=== PATIENT | male | born 1960 | race Caucasian/White ===

== ENCOUNTER 2019-09-24 02:05 | Emergency (ER) | payer SELFPAY ==
[~2019-09-24] VITALS: Ht 172 cm; Wt 68.0 kg
[2019-09-24] MEDS ORDERED: KETOROLAC 30 MG/ML VIAL IM STA (02:23)
--- NOTE | 2019-09-24 02:31 | ED Fall/Injury ---
General Chief Complaint: Back Problems Stated Complaint: RIB PAIN Source: patient Exam Limitations: no limitations History of Present Illness Date Seen by Provider: Sep 24, 2019 Time Seen by Provider: 02:20 Initial Comments 59 yo male presents with right side rib pain. he reports he fell into his truck about 5 days ago. complains of pain into his right ribs. thinks he might have broken them. pt states pain getting worse, he has not taken anything for the pain. Allergies and Home Medications Allergies Coded Allergies: Penicillins (Verified Allergy, Unknown, 09/24/19) morphine (Verified Allergy, Unknown, 09/24/19) Patient Home Medication List Home Medication List Reviewed: Yes Review of Systems Review of Systems Constitutional: No chills, No fever Respiratory: No short of breath Cardiovascular: No chest pain, No palpitations Gastrointestinal: no symptoms reported; No abdominal pain Musculoskeletal: see HPI Skin: no symptoms reported Past Elqrode-Ntawpo-Yqhivw Hx Past Med/Social Hx: Reviewed Nursing Past Med/Soc Hx Patient Social History Alcohol Use: Denies Use Recreational Drug Use: No Smoking Status: Current Everyday Smoker Type Used: Cigarettes 2nd Hand Smoke Exposure: Yes Recent Foreign Travel: No Contact w/Someone Who Travel: No Recent Hopitalizations: No Physical Abuse: No Sexual Abuse: No Mistreated: No Past Medical History Surgeries: Yes Respiratory: No Cardiac: Yes Hypertension Neurological: Yes Stroke Genitourinary: No Gastrointestinal: No Musculoskeletal: No Endocrine: No HEENT: No Cancer: No Psychosocial: No Integumentary: No Blood Disorders: No Physical Exam Vital Signs Vital Signs - First Documented 09/24/19 02:13 Temp 36.4 Pulse 72 Resp 16 B/P (MAP) 184/80 (114) Pulse Ox 98 O2 Delivery Room Air Capillary Refill : Height, Weight, BMI Height: '" Weight: lbs. oz. kg; BMI Method: General Appearance: mild distress Neck: supple Cardiovascular: normal peripheral pulses, regular rate, rhythm Respiratory: lungs clear, normal breath sounds Back: other (tenderness to right posterior ribs. ) Extremities: normal range of motion, non-tender Neurologic/Psychiatric: no motor/sensory deficits, alert, oriented x 3 Skin: normal color, warm/dry Progress/Results/Core Measures Results/Orders My Orders Orders - MARJAN GUILLEN DO Ketorolac Injection (Toradol Injection) (09/24/19 02:23) Ribs/Unilateral With Chest (09/24/19 02:23) Vital Signs/I&O 09/24/19 02:13 Temp 36.4 Pulse 72 Resp 16 B/P (MAP) 184/80 (114) Pulse Ox 98 O2 Delivery Room Air Diagnostic Imaging Diagonstic Imaging: Xray Plain Films/CT/US/NM/MRI: other (right ribs) Comments no fracture noted. Departure Impression Primary Impression: Contusion of rib on right side Qualified Codes: S20.211A - Contusion of right front wall of thorax, initial encounter Disposition: HOME, SELF-CARE Condition: Stable Departure-Patient Inst. Referrals: PIOTR GAMEZ MD (PCP/Family) Primary Care Physician Patient Instructions: Contusion (DC), Bruised Rib (DC) Add. Discharge Instructions: Warm moist heat to affected area 4% topical lidocaine with menthol to affected area as directed on package Tylenol or ibuprofen as needed for pain All discharge instructions reviewed with patient and/or family. Voiced understanding. MARJAN GUILLEN DO Sep 24, 2019 02:31 POS
[2019-09-24 02:55] VITALS: BP 184/80
--- NOTE | 2019-09-24 07:32 | Diagnostic Imaging Report ---
EXAM: RIBS/UNILATERAL WITH CHEST INDICATION: Trauma. Right chest wall pain. COMPARISON: None. FINDINGS: Normal heart size and central pulmonary vascularity. Cardiac pacer. No focal pulmonary opacity, pleural effusion, or pneumothorax. No right rib fractures identified. IMPRESSION: No acute cardiopulmonary findings. No right rib fractures identified. Dictated by: Dictated on workstation # [id number]
== END 2019-09-24 02:56 | disposition home or self-care (01) ==
LOC: ER FS 02:11
DX: S20.211A Contusion of right front wall of thorax, initial encounter (principal); I10 Essential (primary) hypertension; F17.210 Nicotine dependence, cigarettes, uncomplicated; Z86.73 Personal history of transient ischemic attack (TIA), and cerebral infarction without residual deficits; Z88.0 Allergy status to penicillin; Z88.5 Allergy status to narcotic agent; W19.XXXA Unspecified fall, initial encounter; Y92.812 Truck as the place of occurrence of the external cause
CPT/HCPCS: 71101; 96372

== ENCOUNTER 2020-03-22 12:48 | Inpatient (IN) | payer SELFPAY ==
[~2020-03-22] VITALS: Ht 172.7 cm; Wt 77.0 kg
[2020-03-22] VITALS (11 sets, daily range): BP systolic 145–173; BP diastolic 80–108
--- NOTE | 2020-03-22 12:56 | ED General ---
General Stated Complaint: LIGHT-HEADED; LETHARGY; HEAT EXPOSURE History of Present Illness Date Seen by Provider: March 22, 2020 Time Seen by Provider: 12:56 Initial Comments Patient presenting to emergency department for evaluation of multiple complaints including occult ambulating with falls as well as left ear ringing and left sided headache with right arm weakness. All the symptoms except her right arm weakness started yesterday in the right arm weakness has been going on for approximately one month. He says that he had been off his blood pressure medications were restarted them recently. He denies any trauma or pain. No cough fevers chills nausea vomiting or shortness of breath. He does have a history of hypertension high cholesterol as well as smoking cigarettes. He is in no obvious distress with normal vital signs other than hypertension noted. Allergies and Home Medications Allergies Coded Allergies: Penicillins (Verified Allergy, Unknown, 09/24/19) morphine (Verified Allergy, Unknown, 09/24/19) Patient Home Medication List Home Medication List Reviewed: Yes Review of Systems Review of Systems Constitutional: dizziness EENTM: other (ringing in the ear) Respiratory: no symptoms reported Cardiovascular: no symptoms reported Gastrointestinal: no symptoms reported Genitourinary: no symptoms reported Musculoskeletal: no symptoms reported Skin: no symptoms reported Psychiatric/Neurological: Headache, Weakness All Other Systems Reviewed Negative Unless Noted: Yes Past Pkbubag-Wkmofv-Ywlqhb Hx Patient Social History Type Used: Cigarettes 2nd Hand Smoke Exposure: Yes Recent Foreign Travel: No Contact w/Someone Who Travel: No Recent Hopitalizations: No Past Medical History Surgeries: Yes Respiratory: No Cardiac: Yes Hypertension Neurological: Yes Stroke Genitourinary: No Gastrointestinal: No Musculoskeletal: No Endocrine: No HEENT: No Cancer: No Psychosocial: No Integumentary: No Blood Disorders: No Physical Exam Vital Signs Capillary Refill : Height, Weight, BMI Height: '" Weight: lbs. oz. kg; 22.00 BMI Method: General Appearance: No Apparent Distress, WD/WN HEENT: PERRL/EOMI Neck: Supple Respiratory: Lungs Clear, No Respiratory Distress Cardiovascular: Regular Rate, Rhythm Gastrointestinal: Non Tender, Soft Back: Normal Inspection Extremity: Normal Capillary Refill, No Pedal Edema Neurologic/Psychiatric: Alert, Oriented x3, correctional medicine physician II-XII Norm as Tested, Motor Weakness (R arm drift) Skin: Warm/Dry Progress/Results/Core Measures Suspected Sepsis SIRS Temperature: Pulse: Respiratory Rate: Laboratory Tests 03/22/20 13:12: White Blood Count 12.2H Blood Pressure / Mean: Laboratory Tests 03/22/20 13:12: Creatinine 1.12, INR Comment 0.9, Platelet Count 291, Total Bilirubin 0.6 Results/Orders Lab Results Laboratory Tests Test 03/22/20 13:12 03/22/20 13:16 Range/Units White Blood Count 12.2 H 4.3-11.0 10^3/uL Red Blood Count 5.23 4.35-5.85 10^6/uL Hemoglobin 15.0 13.3-17.7 G/DL Hematocrit 44 40-54 % Mean Corpuscular Volume 84 80-99 FL Mean Corpuscular Hemoglobin 29 25-34 PG Mean Corpuscular Hemoglobin Concent 34 32-36 G/DL Red Cell Distribution Width 14.9 H 10.0-14.5 % Platelet Count 291 130-400 10^3/uL Mean Platelet Volume 10.4 7.4-10.4 FL Neutrophils (%) (Auto) 63 42-75 % Lymphocytes (%) (Auto) 24 12-44 % Monocytes (%) (Auto) 10 0-12 % Eosinophils (%) (Auto) 2 0-10 % Basophils (%) (Auto) 1 0-10 % Neutrophils # (Auto) 7.8 1.8-7.8 X 10^3 Lymphocytes # (Auto) 3.0 1.0-4.0 X 10^3 Monocytes # (Auto) 1.2 H 0.0-1.0 X 10^3 Eosinophils # (Auto) 0.2 0.0-0.3 10^3/uL Basophils # (Auto) 0.1 0.0-0.1 10^3/uL Prothrombin Time 12.5 12.2-14.7 SEC INR Comment 0.9 0.8-1.4 Activated Partial Thromboplast Time 28 24-35 SEC Sodium Level 142 135-145 MMOL/L Potassium Level 4.1 3.6-5.0 MMOL/L Chloride Level 104 98-107 MMOL/L Carbon Dioxide Level 26 21-32 MMOL/L Anion Gap 12 5-14 MMOL/L Blood Urea Nitrogen 28 H 7-18 MG/DL Creatinine 1.12 0.60-1.30 MG/DL Estimat Glomerular Filtration Rate > 60 BUN/Creatinine Ratio 25 Glucose Level 113 H 70-105 MG/DL Calcium Level 9.7 8.5-10.1 MG/DL Corrected Calcium 9.5 8.5-10.1 MG/DL Total Bilirubin 0.6 0.1-1.0 MG/DL Aspartate Amino Transf (AST/SGOT) 17 5-34 U/L Alanine Aminotransferase (ALT/SGPT) 17 0-55 U/L Alkaline Phosphatase 66 40-136 U/L Troponin I < 0.30 <0.30 NG/ML Total Protein 6.6 6.4-8.2 GM/DL Albumin 4.3 3.2-4.5 GM/DL Serum Alcohol < 10 <10 MG/DL Urine Color DARK YELLOW Urine Clarity CLEAR Urine pH 6.0 5-9 Urine Specific [place] 1.025 H 1.016-1.022 Urine Protein NEGATIVE NEGATIVE Urine Glucose (UA) NEGATIVE NEGATIVE Urine Ketones NEGATIVE NEGATIVE Urine Nitrite NEGATIVE NEGATIVE Urine Bilirubin NEGATIVE NEGATIVE Urine Urobilinogen 0.2 < = 1.0 MG/DL Urine Leukocyte Esterase NEGATIVE NEGATIVE Urine RBC (Auto) NEGATIVE NEGATIVE Urine RBC RARE /HPF Urine WBC RARE /HPF Urine Squamous Epithelial Cells RARE /HPF Urine Crystals NONE /LPF Urine Bacteria NEGATIVE /HPF Urine Casts NONE /LPF Urine Mucus SMALL H /LPF Urine Culture Indicated NO Urine Opiates Screen NEGATIVE NEGATIVE Urine Oxycodone Screen NEGATIVE NEGATIVE Urine Methadone Screen NEGATIVE NEGATIVE Urine Propoxyphene Screen NEGATIVE NEGATIVE Urine Barbiturates Screen POSITIVE H NEGATIVE Ur Tricyclic Antidepressants Screen NEGATIVE NEGATIVE Urine Phencyclidine Screen NEGATIVE NEGATIVE Urine Amphetamines Screen NEGATIVE NEGATIVE Urine Methamphetamines Screen NEGATIVE NEGATIVE Urine Benzodiazepines Screen NEGATIVE NEGATIVE Urine Cocaine Screen NEGATIVE NEGATIVE Urine Cannabinoids Screen NEGATIVE NEGATIVE My Orders Orders - ELIE PETERSON DO Iv/Invasive Line Insertion .IV start (03/22/20 13:02) Alcohol (03/22/20 13:02) Cbc With Automated Diff (03/22/20 13:02) Comprehensive Metabolic Panel (03/22/20 13:02) Drug Screen Stat (Urine) (03/22/20 13:02) Partial Thromboplastin Time (03/22/20 13:02) Protime With Inr (03/22/20 13:02) Troponin I Fs (03/22/20 13:02) Ua Culture If Indicated (03/22/20 13:02) Chest 1 View Ap/Pa Only (03/22/20 13:02) Ekg Tracing (03/22/20 13:02) Ct Head/Cervical Spine Wo (03/22/20 13:02) Hydralazine Injection (Apresoline Inject (03/22/20 14:30) Amlodipine Tablet (Norvasc Tablet) (03/22/20 14:30) Aspirin Chewable Tablet (Baby Aspirin Ch (03/22/20 14:30) Vital Signs/I&O Capillary Refill : Progress Note : Progress Note Patient has a constellation of nonspecific neurologic symptoms and certainly has blood pressure could be contributory. He was given Norvasc and hydralazine here which improved his blood pressure. Given his abnormal head CT reading of possible pres syndrome I told him that he warrants admission for further observation and treatment and to see if we can get his neurologic symptoms improved. Patient is agreeable with admission as I spoke to Dr. Samuels at [facility] and he agreed to accept patient. Patient transferred in stable condition. Departure Impression Primary Impression: Right arm weakness Additional Impressions: Malignant hypertension Dizziness Disposition: ADMITTED INPATIENT Condition: Stable Transfer Transfer Reason: Exceeds level of care Transfer Facility: [facility] Method of Transfer: EMS Departure-Patient Inst. Referrals: PIOTR GAMEZ MD (PCP/Family) Primary Care Physician ELIE PETERSON DO March 22, 2020 12:56
--- OUTSIDE RECORDS SUMMARY | 2020-03-22 12:56 | XMS REPORT | Continuity of Care Document ---
Author Organization Unknown Address Unknown Phone Unavailable Allergies Active Description Code Type Severity Reaction Onset Reported/Identified Relationship to Patient Clinical Status Yes morphine [id number] Drug Allergy Unknown N/A 09/24/2019 Yes Penicillins [id number] Drug Aller gy Unknown N/A 09/24/2019 Medications There is no data. Problems Date Dx Coded Attending Type Code Diagnosis Diagnosed By 09/27/2019 DONNA GUILLEN DOVOR L Ot F17.2 10 NICOTINE DEPENDENCE, CIGARETTES, UNCOMPL 09/27/2019 WILMER DO, MARJAN L Ot I10 ESSENTIAL (PRIMARY) HYPERTENSION 09/27/2019 WILMER GARZA, MARJAN L Ot R07.8 1 PLEURODYNIA 09/27/2019 WILMER GARZA, MARJAN L Ot S20.211A CONTUSION OF RIGHT FRONT WALL OF THORAX, 09/27/2019 GUILLEN DO, MARJAN L Ot W19.XXXA UNSPECIFIED FALL, INITIAL ENCOUNTER 09/27/2019 DONNA GUILLEN DOVOR L Ot Y92.[address] OF OCCURRENCE OF THE 09/27/2019 GUILLEN DO, MARJAN L Ot Z86.7 3 PRSNL HX OF TIA (TIA), AND CEREB INFRC W 09/27/2019 WILMER GARZA, MARJAN L Ot Z88.0 ALLERGY STATUS TO PENICILLIN 09/27/2019 WILMER GARZA, MARJAN L Ot Z88.5 ALLERGY STATUS TO NARCOTIC AGENT STATUS Procedures There is no data. Results There is no data. Encounters ACCT No. Visit Date/Time Discharge Status Pt. Type Provider Facility Loc./Unit Complaint [id number] 09/24/2019 02:11:00 019 02:56:00 DIS Outpatient MACY GUILLEN DOR L [facility] ER FS RIB PAIN
[2020-03-22 13:42] LABS: BILIRUBIN,URINE NEGATIVE (NEGATIVE); CLARITY,URINE CLEAR; COLOR,URINE DARK YELLOW; GLUCOSE, URINE (UA) NEGATIVE (NEGATIVE); KETONES,URINE NEGATIVE (NEGATIVE); LEUKOCYTE ESTERASE ,URINE NEGATIVE (NEGATIVE); NITRITE,URINE NEGATIVE (NEGATIVE); PROTEIN,URINE NEGATIVE (NEGATIVE)
[2020-03-22 13:47] LABS: BACTERIA,URINE NEGATIVE /HPF; RBC,URINE RARE /HPF; SQUAMOUS EPITHELIAL CELL,UR RARE /HPF; WBC,URINE RARE /HPF
[2020-03-22 13:48] LABS: BASOPHILS # (AUTO) 0.1 10^3/uL (0.0-0.1); BASOPHILS % (AUTO) 1 % (0-10); EOSINOPHILS # (AUTO) 0.2 10^3/uL (0.0-0.3); EOSINOPHILS % (AUTO) 2 % (0-10); HEMATOCRIT 44 % (40-54); LYMPHOCYTES % (AUTO) 24 % (12-44); MEAN CORPUSCULAR HEMOGLOBIN 29 PG (25-34); MEAN CORPUSCULAR HGB CONC 34 G/DL (32-36); MEAN CORPUSCULAR VOLUME 84 FL (80-99); MEAN PLATELET VOLUME 10.4 FL (7.4-10.4); MONOCYTES # (AUTO) 1.2 X 10^3 (0.0-1.0); MONOCYTES % (AUTO) 10 % (0-12); NEUTROPHILS # (AUTO) 7.8 X 10^3 (1.8-7.8); NEUTROPHILS % (AUTO) 63 % (42-75); PLATELET COUNT 291 10^3/uL (130-400); RED CELL DISTRIBUTION WIDTH 14.9 % (10.0-14.5); WHITE BLOOD COUNT 12.2 10^3/uL (4.3-11.0)
[2020-03-22 13:49] LABS: CARBON DIOXIDE 26 MMOL/L (21-32); CHLORIDE 104 MMOL/L (98-107); INR 0.9 (0.8-1.4); POTASSIUM 4.1 MMOL/L (3.6-5.0); PROTHROMBIN TIME PATIENT 12.5 SEC (12.2-14.7); SODIUM 142 MMOL/L (135-145)
[2020-03-22 13:50] LABS: ALANINE AMINOTRANSFERASE 17 U/L (0-55); ALBUMIN 4.3 GM/DL (3.2-4.5); ALKALINE PHOSPHATASE 66 U/L (40-136); BILIRUBIN,TOTAL 0.6 MG/DL (0.1-1.0); BUN/CREATININE RATIO 25; CALCIUM 9.7 MG/DL (8.5-10.1); CREATININE SERUM 1.12 MG/DL (0.60-1.30); GFR ESTIMATED > 60; GLUCOSE 113 MG/DL (70-105); TOTAL PROTEIN 6.6 GM/DL (6.4-8.2)
[2020-03-22 13:51] LABS: AMPHETAMINE SCREEN, URINE NEGATIVE (NEGATIVE); BARBITURATE SCREEN URINE POSITIVE (NEGATIVE); BENZODIAZEPINES SCREEN URINE NEGATIVE (NEGATIVE); CANNABINOID SCREEN, URINE NEGATIVE (NEGATIVE); COCAINE SCREEN URINE NEGATIVE (NEGATIVE); METHADONE STAT NEGATIVE (NEGATIVE); METHAMPHETAMINE SCREEN URINE S NEGATIVE (NEGATIVE); OPIATE SCREEN URINE NEGATIVE (NEGATIVE); OXYCODONE STAT NEGATIVE (NEGATIVE); PROPOXYPHENE STAT NEGATIVE (NEGATIVE); TRICYCLIC ANTIDEPRESSANTS SCRE NEGATIVE (NEGATIVE)
--- NOTE | 2020-03-22 13:55 | Diagnostic Imaging Report ---
EXAM: CHEST 1 VIEW AP/PA ONLY INDICATION: Dizziness. Lightheaded. Ringing in ears. COMPARISON: 09/24/2019. FINDINGS: Normal heart size and central pulmonary vascularity. Minimal atelectasis or infiltrate in the medial right lung base. No pleural effusion or pneumothorax. Cardiac pacer. No acute osseous findings. IMPRESSION: Minimal atelectasis or infiltrate in the medial right lung base is new since the prior exam. Remainder stable. Dictated by: Dictated on workstation # [id number]
--- NOTE | 2020-03-22 14:01 | Diagnostic Imaging Report ---
PROCEDURE: CT head and CT cervical spine without contrast. TECHNIQUE: Multiple contiguous axial images were obtained through the brain and cervical spine without the use of intravenous contrast. Sagittal and coronal reformations through the cervical spine were then performed. Auto Exposure Controls were utilized during the CT exam to meet ALARA standards for radiation dose reduction. INDICATION: Dizziness. Lightheadedness. Ringing in the ears. COMPARISON: None. FINDINGS: CT head: No large acute territorial ischemia, mass, or hemorrhage. No midline shift or mass effect. Decreased attenuation is seen in the periventricular and subcortical white matter, most pronounced in the frontoparietal regions. The ventricles and cortical sulci are symmetric and unremarkable. The basilar cisterns are patent and unremarkable. The calvarium is intact. The visualized paranasal sinuses are clear. CT cervical spine: No acute fracture or dislocation is seen in the cervical spine. No focal osseous lesions. Vertebral body heights are well-maintained. The craniocervical junction is well-maintained. Mild degenerative changes are seen in the cervical spine with disc osteophyte complexes and uncovertebral arthropathy. Soft tissues of the neck are unremarkable. IMPRESSION: 1. No hemorrhage or focal intra-axial mass. No CT evidence of large acute territorial ischemia. 2. No acute fracture or dislocation in the cervical spine. 3. Nonspecific white matter changes, most pronounced in the frontoparietal regions. This may represent age-indeterminate ischemic changes. Other etiologies such as PRES may have this appearance. Recommend correlation with patient history and symptoms and, if indicated, MRI brain to further evaluate. Dictated by: Dictated on workstation # [id number]
[2020-03-22] MEDS ORDERED: hydrALAZINE (APESOLINE) 20 MG/ML VIAL IV ONE (14:30)
[2020-03-22] MEDS ORDERED: amLODIPine 5 MG (NORVASC) TAB PO ONE (14:30)
[2020-03-22] MEDS ORDERED: ASPIRIN 81 MG CHEW (CHILDREN'S ASA) PO ONE (14:30)
--- OUTSIDE RECORDS SUMMARY | 2020-03-22 14:53 | XMS REPORT | Continuity of Care Document ---
Author Organization Unknown Address Unknown Phone Unavailable Allergies Active Description Code Type Severity Reaction Onset Reported/Identified Relationship to Patient Clinical Status Yes morphine [id number] Drug Allergy Unknown N/A 09/24/2019 Yes Penicillins [id number] Drug Aller gy Unknown N/A 09/24/2019 Medications [...] Status Pt. Type Provider Facility Loc./Unit Complaint [id number] 09/24/2019 02:11:00 019 02:56:00 DIS Outpatient MACY GUILLEN DOR L [facility] ER FS RIB PAIN
--- NOTE | 2020-03-22 16:15 | NUR ---
JOSE ANTONIO MILNER admitted to room CU12-1, with an admitting diagnosis of malignant htn, on 03/22/20 from [facility] via [facility], accompanied by staff.JOSE ANTONIO MILNER introduced to surroundings, call light, bed controls, phone, TV, temperature control, lights, meal times, smoking policy, visitor policy, side rail policy, bathrooms and showers. Patient Rights given to patient in the handbook. JOSE ANTONIO MILNER verbalizes understanding that [facility] is not responsible for the loss or damage to any personal effects or valuables that are kept in the patients posession during their hospitalization. The following Patient Care Plans were discussed with the pt: Discharge Planning, knowledge deficit,fluid volume excess, and altered cerebral tissue perfusion. JOSE ANTONIO MILNER verbalizes understanding of Interdisciplinary Patient Education. Patient and family were informed about the Rapid Response Team and its purpose.
[2020-03-22] MEDS ORDERED: hydrALAZINE (APESOLINE) 20 MG/ML VIAL IV PRN (16:30)
[2020-03-22] MEDS: NICOTINE 21 MG (NICODERM) PATCH TD SCH (17:54)
[2020-03-22] MEDS: CARVEDILOL 6.25 MG (COREG) TAB PO SCH (21:05)
[2020-03-23] VITALS (12 sets, daily range): BP systolic 136–157; BP diastolic 80–96
[2020-03-23 03:44] LABS: BASOPHILS # (AUTO) 0.1 10^3/uL (0.0-0.1); BASOPHILS % (AUTO) 1 % (0-10); EOSINOPHILS # (AUTO) 0.3 10^3/uL (0.0-0.3); EOSINOPHILS % (AUTO) 3 % (0-10); HEMATOCRIT 43 % (40-54); HEMOGLOBIN 14.8 G/DL (13.3-17.7); LYMPHOCYTES # (AUTO) 3.1 X 10^3 (1.0-4.0); LYMPHOCYTES % (AUTO) 32 % (12-44); MEAN CORPUSCULAR HEMOGLOBIN 29 PG (25-34); MEAN CORPUSCULAR HGB CONC 35 G/DL (32-36); MEAN CORPUSCULAR VOLUME 83 FL (80-99); MEAN PLATELET VOLUME 10.5 FL (7.4-10.4); MONOCYTES # (AUTO) 1.2 X 10^3 (0.0-1.0); MONOCYTES % (AUTO) 12 % (0-12); NEUTROPHILS # (AUTO) 5.1 X 10^3 (1.8-7.8); NEUTROPHILS % (AUTO) 53 % (42-75); PLATELET COUNT 274 10^3/uL (130-400); RED CELL DISTRIBUTION WIDTH 15.6 % (10.0-14.5); WHITE BLOOD COUNT 9.8 10^3/uL (4.3-11.0)
[2020-03-23 04:14] LABS: CHLORIDE 106 MMOL/L (98-107); POTASSIUM 3.7 MMOL/L (3.6-5.0); SODIUM 139 MMOL/L (135-145)
[2020-03-23 04:16] LABS: CALCIUM 9.1 MG/DL (8.5-10.1)
[2020-03-23 04:17] LABS: GLUCOSE 90 MG/DL (70-105); TOTAL PROTEIN 6.8 GM/DL (6.4-8.2)
[2020-03-23 04:18] LABS: BILIRUBIN,TOTAL 0.6 MG/DL (0.1-1.0); CARBON DIOXIDE 21 MMOL/L (21-32)
[2020-03-23 04:20] LABS: ALKALINE PHOSPHATASE 60 U/L (40-136); CREATININE SERUM 1.03 MG/DL (0.60-1.30); GFR ESTIMATED > 60; PHOSPHORUS 3.9 MG/DL (2.3-4.7)
[2020-03-23 04:21] LABS: BUN/CREATININE RATIO 19
[2020-03-23 04:23] LABS: ALANINE AMINOTRANSFERASE 17 U/L (0-55)
[2020-03-23] MEDS ORDERED: POTASSIUM CL 10MEQ/50ML IVPB 50 ML IV SCH (06:00)
[2020-03-23] MEDS ORDERED: KCL 20 MEQ TAB (K-DUR) PO SCH (06:00)
[2020-03-23] MEDS ORDERED: MAGNESIUM 1 GM/100 ML IVPB 100 ML IV SCH (06:00)
[2020-03-23] MEDS: CARVEDILOL 6.25 MG (COREG) TAB PO SCH (08:18)
[2020-03-23] MEDS: NICOTINE 21 MG (NICODERM) PATCH TD SCH (08:19)
[2020-03-23] MEDS ORDERED: NICOTINE 21 MG (NICODERM) PATCH TD SCH (09:00)
[2020-03-23] MEDS ORDERED: LOSARTAN 100 MG (COZAAR) TABLET PO SCH (09:00)
--- NOTE | 2020-03-23 09:34 | History & Physical ---
HPI History of Present Illness: Monday afternoon started feeling weak and dizzy, thought due to heat and not enough fluid intake. Monday was going to mow yard and couldn't due to weakness. Just felt generalized weakness, couldn't stand up well. Feeling much better now, able to stand. He does admit he did not drink much on Monday, maybe 2 bottles of water and was outside all day. He had been off of his blood pressure medications for a while, but restarted about a week and a half before this occurred. He did also have bad headache when this occurred, which is better now. Denies chest pain, fever. He reports he has pacemaker for "weak heart" and has had multiple stents. He has not seen Cardiology for the last few scheduled times due to pandemic preventing the outreach clinic in [facility]. Source: patient Date seen by provider: March 23, 2020 Time Seen by Provider: 09:30 Attending Physician Sharron Lopez MD PCP Clarence Mota MD Consult Date of Admission March 22, 2020 at 14:49 Home Medications Home Medications Reviewed patient Home Medication Reconciliation performed by pharmacy medication reconciliations refractory technician and/or nursing. Patients Allergies have been reviewed. Allergies Coded Allergies: Penicillins (Verified Allergy, Unknown, 09/24/19) morphine (Verified Allergy, Unknown, 09/24/19) [id number] Hx Patient Social History Alcohol Use: Occasionally Uses Recreational Drug Use: No Smoking Status: Current Everyday Smoker Type Used: Cigarettes 2nd Hand Smoke Exposure: Yes Recent Foreign Travel: No Contact w/other who traveled: No Recent Hopitalizations: No Recent Infectious Disease Expo: No Past Medical History PMHx: HTN Pacemaker Coronary artery disease s/p stenting SurgHx: Pacemaker placement x 2 Cardiac stenting multiple times Family Medical History Significant Family History: Heart Disease Review of Systems ([facility]) Constitutional: No fever EENTM: No blurred vision Respiratory: cough (rare, relates to smoking); No short of breath Cardiovascular: No chest pain Gastrointestinal: No abdominal pain, No constipation, No diarrhea, No nausea, No vomiting Genitourinary: No dysuria Musculoskeletal: No joint pain Skin: rash (itchy in right inguinal region) Reviewed Test Results Reviewed Test Results Lab Laboratory Tests Test 03/22/20 13:12 03/22/20 13:16 03/23/20 03:31 Range/Units White Blood Count 12.2 H 9.8 4.3-11.0 10^3/uL Red Blood Count 5.23 5.14 4.35-5.85 10^6/uL Hemoglobin 15.0 14.8 13.3-17.7 G/DL Hematocrit 44 43 40-54 % Mean Corpuscular Volume 84 83 80-99 FL Mean Corpuscular Hemoglobin 29 29 25-34 PG Mean Corpuscular Hemoglobin Concent 34 35 32-36 G/DL Red Cell Distribution Width 14.9 H 15.6 H 10.0-14.5 % Platelet Count 291 274 130-400 10^3/uL Mean Platelet Volume 10.4 10.5 H 7.4-10.4 FL Neutrophils (%) (Auto) 63 53 42-75 % Lymphocytes (%) (Auto) 24 32 12-44 % Monocytes (%) (Auto) 10 12 0-12 % Eosinophils (%) (Auto) 2 3 0-10 % Basophils (%) (Auto) 1 1 0-10 % Neutrophils # (Auto) 7.8 5.1 1.8-7.8 X 10^3 Lymphocytes # (Auto) 3.0 3.1 1.0-4.0 X 10^3 Monocytes # (Auto) 1.2 H 1.2 H 0.0-1.0 X 10^3 Eosinophils # (Auto) 0.2 0.3 0.0-0.3 10^3/uL Basophils # (Auto) 0.1 0.1 0.0-0.1 10^3/uL Prothrombin Time 12.5 12.2-14.7 SEC INR Comment 0.9 0.8-1.4 Activated Partial Thromboplast Time 28 24-35 SEC Sodium Level 142 139 135-145 MMOL/L Potassium Level 4.1 3.7 3.6-5.0 MMOL/L Chloride Level 104 106 98-107 MMOL/L Carbon Dioxide Level 26 21 21-32 MMOL/L Anion Gap 12 12 5-14 MMOL/L Blood Urea Nitrogen 28 H 20 H 7-18 MG/DL Creatinine 1.12 1.03 0.60-1.30 MG/DL Estimat Glomerular Filtration Rate > 60 > 60 BUN/Creatinine Ratio 25 19 Glucose Level 113 H 90 70-105 MG/DL Calcium Level 9.7 9.1 8.5-10.1 MG/DL Corrected Calcium 9.5 9.1 8.5-10.1 MG/DL Total Bilirubin 0.6 0.6 0.1-1.0 MG/DL Aspartate Amino Transf (AST/SGOT) 17 20 5-34 U/L Alanine Aminotransferase (ALT/SGPT) 17 17 0-55 U/L Alkaline Phosphatase 66 60 40-136 U/L Troponin I < 0.30 <0.30 NG/ML Total Protein 6.6 6.8 6.4-8.2 GM/DL Albumin 4.3 4.0 3.2-4.5 GM/DL Serum Alcohol < 10 <10 MG/DL Urine Color DARK YELLOW Urine Clarity CLEAR Urine pH 6.0 5-9 Urine Specific [place] 1.025 H 1.016-1.022 Urine Protein NEGATIVE NEGATIVE Urine Glucose (UA) NEGATIVE NEGATIVE Urine Ketones NEGATIVE NEGATIVE Urine Nitrite NEGATIVE NEGATIVE Urine Bilirubin NEGATIVE NEGATIVE Urine Urobilinogen 0.2 < = 1.0 MG/DL Urine Leukocyte Esterase NEGATIVE NEGATIVE Urine RBC (Auto) NEGATIVE NEGATIVE Urine RBC RARE /HPF Urine WBC RARE /HPF Urine Squamous Epithelial Cells RARE /HPF Urine Crystals NONE /LPF Urine Bacteria NEGATIVE /HPF Urine Casts NONE /LPF Urine Mucus SMALL H /LPF Urine Culture Indicated NO Urine Opiates Screen NEGATIVE NEGATIVE Urine Oxycodone Screen NEGATIVE NEGATIVE Urine Methadone Screen NEGATIVE NEGATIVE Urine Propoxyphene Screen NEGATIVE NEGATIVE Urine Barbiturates Screen POSITIVE H NEGATIVE Ur Tricyclic Antidepressants Screen NEGATIVE NEGATIVE Urine Phencyclidine Screen NEGATIVE NEGATIVE Urine Amphetamines Screen NEGATIVE NEGATIVE Urine Methamphetamines Screen NEGATIVE NEGATIVE Urine Benzodiazepines Screen NEGATIVE NEGATIVE Urine Cocaine Screen NEGATIVE NEGATIVE Urine Cannabinoids Screen NEGATIVE NEGATIVE Phosphorus Level 3.9 2.3-4.7 MG/DL Magnesium Level 2.0 1.6-2.4 MG/DL Radiology Head CT 03/22: IMPRESSION: 1. No hemorrhage or focal intra-axial mass. No CT evidence of large acute territorial ischemia. 2. No acute fracture or dislocation in the cervical spine. 3. Nonspecific white matter changes, most pronounced in the frontoparietal regions. This may represent age-indeterminate ischemic changes. Other etiologies such as PRES may have this appearance. Recommend correlation with patient history and symptoms and, if indicated, MRI brain to further evaluate. Physical Exam-([facility]) Physical Exam Vital Signs VS - Last 72 Hours, by Label 5/24/03/22/20 03/22/20 03/22/20 13:03 15:35 16:15 16:15 Temp 36.5 36.5 36.7 Pulse 61 65 64 Resp 12 15 13 B/P (MAP) 190/97 (128) 151/78 (128) 147/89 (108) Pulse Ox 99 98 99 O2 Delivery Room Air Room Air Room Air Room Air 03/22/20 03/22/20 03/22/20 03/22/20 16:28 16:30 16:45 17:00 Pulse 68 61 61 63 Resp 16 17 19 B/P (MAP) 167/96 (119) 173/94 (120) 157/108 (124) Pulse Ox 99 99 99 O2 Delivery Room Air Room Air Room Air 03/22/20 03/22/20 03/22/20 03/22/20 17:15 18:00 19:00 19:00 Pulse 63 60 60 60 Resp 12 19 18 B/P (MAP) 161/102 (121) 154/81 (105) 145/86 (105) Pulse Ox 99 99 98 O2 Delivery Room Air Room Air Room Air 03/22/20 03/22/20 03/22/20 03/22/20 19:20 20:00 20:00 21:00 Temp 36.8 Pulse 67 60 Resp 21 15 B/P (MAP) 154/85 (108) 161/93 (115) Pulse Ox 99 98 98 O2 Delivery Room Air Room Air Room Air 03/22/20 03/22/20 03/23/20 03/23/20 22:00 23:00 00:00 00:00 Pulse 60 60 60 Resp 16 16 13 B/P (MAP) 157/84 (108) 150/80 (103) 146/81 (102) Pulse Ox 98 98 98 98 O2 Delivery Room Air Room Air Room Air Room Air 03/23/20 03/23/20 03/23/20 03/23/20 01:00 01:00 02:00 03:00 Pulse 60 60 60 61 Resp 9 23 B/P (MAP) 136/80 (98) 152/89 (110) 149/93 (111) Pulse Ox 98 97 98 O2 Delivery Room Air Room Air Room Air 03/23/20 03/23/20 03/23/20 03/23/20 04:00 04:00 04:00 05:00 Temp 36.3 Pulse 60 60 Resp 16 16 B/P (MAP) 140/88 (105) 140/87 (104) Pulse Ox 97 98 97 O2 Delivery Room Air Room Air Room Air 03/23/20 03/23/20 03/23/20 03/23/20 06:00 07:00 07:00 08:00 Pulse 60 60 60 60 Resp 17 10 26 B/P (MAP) 156/89 (111) 138/83 (101) Pulse Ox 98 98 98 O2 Delivery Room Air Room Air Room Air 03/23/20 03/23/20 03/23/20 03/23/20 08:00 08:27 09:00 10:00 Temp 36.5 Pulse 60 61 Resp 18 14 B/P (MAP) 151/86 (107) 151/91 (111) Pulse Ox 98 98 98 O2 Delivery Room Air Room Air Room Air 03/23/20 03/23/20 03/23/20 03/23/20 11:00 11:34 12:00 12:00 Temp 36.5 Pulse 60 61 Resp 15 14 B/P (MAP) 154/96 (115) 157/93 (114) Pulse Ox 98 98 99 O2 Delivery Room Air Room Air Room Air 03/23/20 12:33 Pulse 61 Capillary Refill : Less Than 3 SecondsLess Than 3 Seconds General Appearance: WD/WN, no apparent distress Eyes: Bilateral Eye PERRL, Bilateral Eye EOMI Respiratory: lungs clear, normal breath sounds Cardiovascular: regular rate, rhythm, systolic murmur (pt reports chronic) Gastrointestinal: normal bowel sounds, non tender, soft Extremities: no pedal edema Neurologic/Psychiatric: family practice md II-XII nml as tested, alert, normal mood/affect, oriented x 3; No abnormal cerebellar tests, No motor weakness Skin: rash (erythematous scaling plaque in right inguinal region) Assessment/Plan Assessment/Plan Admission Status: Observation (1) Malignant hypertension Status: Acute Assessment & Plan: Blood pressure improved with one dose of hydralazine and one dose of amlodipine in addition to his home medication. Will resume amlodipine 10 mg which he was on previously. MRI not available today, but neurologic exam normal. (2) Dizziness Status: Resolved (3) Right arm weakness Status: Resolved Clinical Quality Measures DVT/VTE Risk/Contraindication: Risk Factor Score Per Nursin RFS Level Per Nursing on Admit: 2=Moderate SHARRON LOPEZ MD March 23, 2020 09:34
[2020-03-23] MEDS ORDERED: CARV6.252 PO (09:40)
[2020-03-23] MEDS ORDERED: LOSA100T57 PO (09:40)
[2020-03-23] MEDS ORDERED: ATOR40TA70 PO (09:40)
[2020-03-23] MEDS ORDERED: ASPIRIN 325 MG (5 GR) TABLET PO SCH (10:00)
[2020-03-23] MEDS ORDERED: amLODIPine 10 MG (NORVASC) TAB PO SCH (10:00)
[2020-03-23] MEDS ORDERED: AMLO10TA7 PO (11:27)
[2020-03-23] MEDS ORDERED: ASPI-808 PO (11:27)
--- NOTE | 2020-03-23 12:56 | Discharge Summary ---
Discharge Summary Hospital Course Problems/Diagnosis: (1) Malignant hypertension Status: Acute Assessment & Plan: Blood pressure improved with one dose of hydralazine and one dose of amlodipine in addition to his home medication. Will resume amlodipine 10 mg which he was on previously. MRI not available today, but neurologic exam normal. Patient wanting to go home as soon as possible, neurologic signs resolved and BP 150s/90s. Instructed to stay off work until follow up to ensure BP safe for exertion. (2) Dizziness Status: Resolved Resolution Date/Time: 03/23/20 @ 12:55 (3) Right arm weakness Status: Resolved Resolution Date/Time: 03/23/20 @ 12:55 Hospital Course Date of Admission: March 22, 2020 at 14:49 Admission Diagnosis : Family Physician/Provider: Clarence Mota MD Date of Discharge: 03/23/20 Discharge Diagnosis: See problem list Hospital Course: See problem list Labs and Pending Lab Test: Laboratory Tests 03/22/20 13:12: White Blood Count 12.2H, Red Blood Count 5.23, Hemoglobin 15.0, Hematocrit 44, Mean Corpuscular Volume 84, Mean Corpuscular Hemoglobin 29, Mean Corpuscular Hemoglobin Concent 34, Red Cell Distribution Width 14.9H, Platelet Count 291, M ashwin Platelet Volume 10.4, Neutrophils (%) (Auto) 63, Lymphocytes (%) (Auto) 24, Monocytes (%) (Auto) 10, Eosinophils (%) (Auto) 2, Basophils (%) (Auto) 1, Neutrophils # (Auto) 7.8, Lymphocytes # (Auto) 3.0, Monocytes # (Auto) 1.2H, Eos inophils # (Auto) 0.2, Basophils # (Auto) 0.1, Prothrombin Time 12.5, INR Comment 0.9, Activated Partial Thromboplast Time 28, Sodium Level 142, Potassium Level 4.1, Chloride Level 104, Carbon Dioxide Level 26, Anion Gap 12, Blood Urea Nitrogen 28H, Creatinine 1.12, Estimat Glomerular Filtration Rate > 60, BUN/Creatinine Ratio 25, Glucose Level 113H, Calcium Level 9.7, Corrected Calcium 9.5, Total Bilirubin 0.6, Aspartate Amino Transf (AST/SGOT) 17, Alanine Aminotransferase (ALT/SGPT) 17, Alkaline Phosphatase 66, Troponin I < 0.30, Total Protein 6.6, Albumin 4.3, Serum Alcohol < 10 03/22/20 13:16: Urine Color DARK YELLOW, Urine Clarity CLEAR, Urine pH 6.0, Urine Specific [place] 1.025H, Urine Protein NEGATIVE, Urine Glucose (UA) NEGATIVE, Urine Ketones NEGATIVE, Urine Nitrite NEGATIVE, Urine Bilirubin NEGATIVE, Urine Urobilinogen 0.2, Urine Leukocyte Esterase NEGATIVE, Urine RBC (Auto) NEGATIVE, Urine RBC RARE, Urine WBC RARE, Urine Squamous Epithelial Cells RARE, Urine Crystals NONE, Urine Bacteria NEGATIVE, Urine Casts NONE, Urine Mucus SMALLH, Urine Culture Indicated NO, Urine Opiates Screen NEGATIVE, Urine Oxycodone Screen NEGATIVE, Urine Methadone Screen NEGATIVE, Urine Propoxyphene Screen NEGATIVE, Urine Barbiturates Screen POSITIVEH, Ur Tricyclic Antidepressants Screen NEGATIVE, Urine Phencyclidine Screen NEGATIVE, Urine Amphetamines Screen NEGATIVE, Urine Methamphetamines Screen NEGATIVE, Urine Benzodiazepines Screen NEGATIVE, Urine Cocaine Screen NEGATIVE, Urine Cannabinoids Screen NEGATIVE 03/23/20 03:31: White Blood Count 9.8, Red Blood Count 5.14, Hemoglobin 14.8, Hematocrit 43, Mean Corpuscular Volume 83, Mean Corpuscular Hemoglobin 29, Mean Corpuscular Hemoglobin Concent 35, Red Cell Distribution Width 15.6H, Platelet Count 274, Mean Platelet Volume 10.5H, Neutrophils (%) (Auto) 53, Lymphocytes (%) (Auto) 32, Monocytes (%) (Auto) 12, Eosinophils (%) (Auto) 3, Basophils (%) (Auto) 1, Neutrophils # (Auto) 5.1, Lymphocytes # (Auto) 3.1, Monocytes # (Auto) 1.2H, Eosinophils # (Auto) 0.3, Basophils # (Auto) 0.1, Sodium Level 139, Potassium Level 3.7, Chloride Level 106, Carbon Dioxide Level 21, Anion Gap 12, Blood Urea Nitrogen 20H, Creatinine 1.03, Estimat Glomerular Filtration Rate > 60, BUN/Creatinine Ratio 19, Glucose Level 90, Calcium Level 9.1, Corrected Calcium 9.1, Total Bilirubin 0.6, Aspartate Amino Transf (AST/SGOT) 20, Alanine Aminotransferase (ALT/SGPT) 17, Alkaline Phosphatase 60, Total Protein 6.8, Albumin 4.0, Phosphorus Level 3.9, Magnesium Level 2.0 Home Meds Active Aspirin 325 Mg Tablet 325 Mg PO DAILY Amlodipine Besylate 10 Mg Tablet 10 Mg PO DAILY Reported Atorvastatin Calcium 40 Mg Tablet 40 Mg PO DAILY Losartan Potassium 100 Mg Tablet 100 Mg PO DAILY Carvedilol 6.25 Mg Tablet 6.25 Mg PO BID Assessment/Pt DC Instructions Follow up with Dr. Mota this week. Discharge Diet: Low Sodium Diet Activity as Tolerated: Yes (avoid strenuous activity until follow up visit) Orders-Post D/C & Referrals Pneu Vac Indicated: Yes Discharge Physical Examination Allergies: Coded Allergies: Penicillins (Verified Allergy, Unknown, 09/24/19) morphine (Verified Allergy, Unknown, 09/24/19) Copy Copies To 1: Clarence Mota MD Clinical Quality Measures DVT/VTE Risk/Contraindication: Risk Factor Score Per Nursin RFS Level Per Nursing on Admit: 2=Moderate SHARRON MCCLELLAND MD March 23, 2020 12:56
== END 2020-03-23 14:48 | disposition home or self-care (01) | DRG 305 ==
LOC: EDUNIT# 12:48 → ER FS 12:51 → ICU 14:49
PROVIDERS: ADMIT Internal Medicine; ATTEND Family Medicine
DX: I10 Essential (primary) hypertension (principal); R42 Dizziness and giddiness; R29.818 Other symptoms and signs involving the nervous system; I25.10 Atherosclerotic heart disease of native coronary artery without angina pectoris; F17.210 Nicotine dependence, cigarettes, uncomplicated; Z88.0 Allergy status to penicillin; Z88.5 Allergy status to narcotic agent; Z95.0 Presence of cardiac pacemaker; Z95.5 Presence of coronary angioplasty implant and graft
CPT/HCPCS: 36415; 70450; 71045; 72125; 80053; 80306; 80320; 81000; 83735; 84100; 84484; 85025; 85610; 85730; 87081; 93005; 96374; G0378